=== PATIENT | male | born 1965 | race Caucasian/White ===

== ENCOUNTER 2020-03-14 19:47 | Emergency (ER) | payer SELFPAY ==
[~2020-03-14] VITALS: Ht 177 cm; Wt 77.0 kg
[2020-03-14 19:59] LABS: BASOPHILS % (AUTO) 0 % (0-10); EOSINOPHILS # (AUTO) 0.1 10^3/uL (0.0-0.3); EOSINOPHILS % (AUTO) 1 % (0-10); HEMATOCRIT 44 % (40-54); HEMOGLOBIN 15.7 G/DL (13.3-17.7); LYMPHOCYTES # (AUTO) 0.9 X 10^3 (1.0-4.0); LYMPHOCYTES % (AUTO) 9 % (12-44); MEAN CORPUSCULAR HEMOGLOBIN 37 PG (25-34); MEAN CORPUSCULAR HGB CONC 36 G/DL (32-36); MEAN CORPUSCULAR VOLUME 105 FL (80-99); MEAN PLATELET VOLUME 9.4 FL (7.4-10.4); MONOCYTES # (AUTO) 1.2 X 10^3 (0.0-1.0); MONOCYTES % (AUTO) 12 % (0-12); NEUTROPHILS # (AUTO) 7.7 X 10^3 (1.8-7.8); NEUTROPHILS % (AUTO) 77 % (42-75); PLATELET COUNT 235 10^3/uL (130-400); RED CELL DISTRIBUTION WIDTH 13.2 % (10.0-14.5); WHITE BLOOD COUNT 9.9 10^3/uL (4.3-11.0)
[2020-03-14] MEDS ORDERED: LACTATED RINGERS 1,000 ML IV SCH (20:00)
--- NOTE | 2020-03-14 20:12 | ED General ---
General Chief Complaint: Exposure Stated Complaint: SYNCOPE Source of Information: Patient Exam Limitations: No Limitations History of Present Illness Date Seen by Provider: Mar 14, 2020 Time Seen by Provider: 20:10 Initial Comments To ER with syncopal episode. He is brought in by EMS after coworkers found him to be unresponsive for a few minutes. He then was confused afterwards. Upon arrival to ER he is feeling back to normal. He's been working out in the heat all day today, temperatures upwards of 100 with the heat index. Timing/Duration: 1-2 Days Severity: Moderate Associated Systoms: Denies Symptoms Allergies and Home Medications Allergies Coded Allergies: No Known Drug Allergies (Unverified , 03/14/20) Patient Home Medication List Home Medication List Reviewed: Yes Review of Systems Review of Systems Constitutional: see HPI EENTM: see HPI Respiratory: no symptoms reported Cardiovascular: no symptoms reported Genitourinary: no symptoms reported Musculoskeletal: no symptoms reported Skin: no symptoms reported Psychiatric/Neurological: No Symptoms Reported Hematologic/Lymphatic: No Symptoms Reported Immunological/Allergic: no symptoms reported Physical Exam Vital Signs Vital Signs - First Documented 03/14/20 19:47 Temp 36.6 Pulse 111 Resp 16 B/P (MAP) 127/87 (100) O2 Delivery Room Air Capillary Refill : Height, Weight, BMI Height: '" Weight: lbs. oz. kg; BMI Method: General Appearance: No Apparent Distress, WD/WN, Other (alert and oriented sitting up talking to me pleasant conversing appropriately) Eyes: Bilateral Eye Normal Inspection, Bilateral Eye PERRL, Bilateral Eye EOMI HEENT: PERRL/EOMI, TMs Normal, Other (there is no scalp laceration or hematoma to suggest that he hit his head when he fell) Neck: Full Range of Motion, Normal Inspection Respiratory: Normal Breath Sounds, No Accessory Muscle Use, No Respiratory Distress Cardiovascular: Normal Peripheral Pulses, Tachycardia Gastrointestinal: Normal Bowel Sounds, Non Tender, Soft Extremity: Normal Capillary Refill Neurologic/Psychiatric: Alert, Oriented x3 Skin: Normal Color, Warm/Dry Progress/Results/Core Measures Suspected Sepsis SIRS Temperature: Pulse: Respiratory Rate: Laboratory Tests 03/14/20 19:53: White Blood Count 9.9 Blood Pressure / Mean: Laboratory Tests 03/14/20 19:53: Creatinine 0.92, Platelet Count 235, Total Bilirubin 1.5H Results/Orders Lab Results Laboratory Tests Test 03/14/20 19:53 Range/Units White Blood Count 9.9 4.3-11.0 10^3/uL Red Blood Count 4.19 L 4.35-5.85 10^6/uL Hemoglobin 15.7 13.3-17.7 G/DL Hematocrit 44 40-54 % Mean Corpuscular Volume 105 H 80-99 FL Mean Corpuscular Hemoglobin 37 H 25-34 PG Mean Corpuscular Hemoglobin Concent 36 32-36 G/DL Red Cell Distribution Width 13.2 10.0-14.5 % Platelet Count 235 130-400 10^3/uL Mean Platelet Volume 9.4 7.4-10.4 FL Neutrophils (%) (Auto) 77 H 42-75 % Lymphocytes (%) (Auto) 9 L 12-44 % Monocytes (%) (Auto) 12 0-12 % Eosinophils (%) (Auto) 1 0-10 % Basophils (%) (Auto) 0 0-10 % Neutrophils # (Auto) 7.7 1.8-7.8 X 10^3 Lymphocytes # (Auto) 0.9 L 1.0-4.0 X 10^3 Monocytes # (Auto) 1.2 H 0.0-1.0 X 10^3 Eosinophils # (Auto) 0.1 0.0-0.3 10^3/uL Basophils # (Auto) 0.0 0.0-0.1 10^3/uL Sodium Level 135 135-145 MMOL/L Potassium Level 3.3 L 3.6-5.0 MMOL/L Chloride Level 99 98-107 MMOL/L Carbon Dioxide Level 17 L 21-32 MMOL/L Anion Gap 19 H 5-14 MMOL/L Blood Urea Nitrogen 8 7-18 MG/DL Creatinine 0.92 0.60-1.30 MG/DL Estimat Glomerular Filtration Rate > 60 BUN/Creatinine Ratio 9 Glucose Level 116 H 70-105 MG/DL Calcium Level 9.2 8.5-10.1 MG/DL Corrected Calcium 9.1 8.5-10.1 MG/DL Total Bilirubin 1.5 H 0.1-1.0 MG/DL Aspartate Amino Transf (AST/SGOT) 70 H 5-34 U/L Alanine Aminotransferase (ALT/SGPT) 57 H 0-55 U/L Alkaline Phosphatase 83 40-136 U/L Total Creatine Kinase 593 H 30-200 U/L Total Protein 7.4 6.4-8.2 GM/DL Albumin 4.1 3.2-4.5 GM/DL My Orders Orders - TIBURCIO CALLES APRN Lactated Ringers (Lr 1000 Ml Iv Solution (03/14/20 20:00) Cbc With Automated Diff (03/14/20 19:53) Comprehensive Metabolic Panel (03/14/20 19:53) Ua Culture If Indicated (03/14/20 19:53) Creatine Kinase (03/14/20 19:53) Chest 1 View, Ap/Pa Only (03/14/20 19:53) Vital Signs/I&O 03/14/20 19:47 Temp 36.6 Pulse 111 Resp 16 B/P (MAP) 127/87 (100) O2 Delivery Room Air Capillary Refill : Departure Impression Primary Impression: Heat exhaustion Additional Impression: Syncope and collapse Disposition: 01 HOME, SELF-CARE Condition: Stable Departure-Patient Inst. Decision time for Depature: 20:53 Patient Instructions: Heat Exhaustion and Heat Stroke (DC) TIBURCIO CALLES APRN Mar 14, 2020 20:12
[2020-03-14 20:14] LABS: ALBUMIN 4.1 GM/DL (3.2-4.5); CHLORIDE 99 MMOL/L (98-107); POTASSIUM 3.3 MMOL/L (3.6-5.0); SODIUM 135 MMOL/L (135-145)
[2020-03-14 20:15] LABS: CALCIUM 9.2 MG/DL (8.5-10.1)
[2020-03-14 20:16] LABS: GLUCOSE 116 MG/DL (70-105); TOTAL PROTEIN 7.4 GM/DL (6.4-8.2)
--- NOTE | 2020-03-14 20:16 | NUR ---
1L NS INFUSED THAT WAS STARTED VIA EMS EN ROUTE.
[2020-03-14 20:17] LABS: CARBON DIOXIDE 17 MMOL/L (21-32)
[2020-03-14 20:18] LABS: BILIRUBIN,TOTAL 1.5 MG/DL (0.1-1.0)
[2020-03-14 20:20] LABS: ALKALINE PHOSPHATASE 83 U/L (40-136); CREATININE SERUM 0.92 MG/DL (0.60-1.30); GFR ESTIMATED > 60
[2020-03-14 20:21] LABS: BUN/CREATININE RATIO 9
[2020-03-14 20:23] LABS: ALANINE AMINOTRANSFERASE 57 U/L (0-55); CREATINE KINASE 593 U/L (30-200)
--- NOTE | 2020-03-14 20:27 | Diagnostic Imaging Report ---
INDICATION: Heat exposure. Syncope. Single view of the chest shows normal heart size and vascularity. The lungs are clear. There is no effusion or pneumothorax. There is no bony abnormality. IMPRESSION: Normal chest. Dictated by: Dictated on workstation # [id number]
[2020-03-14 20:56] LABS: BILIRUBIN,URINE NEGATIVE (NEGATIVE); CLARITY,URINE CLEAR; COLOR,URINE YELLOW; GLUCOSE, URINE (UA) NEGATIVE (NEGATIVE); KETONES,URINE 1+ (NEGATIVE); LEUKOCYTE ESTERASE ,URINE NEGATIVE (NEGATIVE); NITRITE,URINE NEGATIVE (NEGATIVE); PH,URINE 6.5 (5-9); PROTEIN,URINE 1+ (NEGATIVE)
[2020-03-14 21:00] VITALS: BP 127/80
[2020-03-14 21:02] LABS: BACTERIA,URINE TRACE /HPF; SQUAMOUS EPITHELIAL CELL,UR RARE /HPF; WBC,URINE 0-2 /HPF
[2020-03-14 21:03] LABS: HYALINE CASTS, URINE 0-2 /LPF
== END 2020-03-14 21:01 | disposition home or self-care (01) ==
LOC: ER 19:49
DX: T67.5XXA Heat exhaustion, unspecified, initial encounter (principal); R55 Syncope and collapse
CPT/HCPCS: 36415; 71045; 80053; 81000; 82550; 85025

== ENCOUNTER → 2020-10-06 | Outpatient (CLI) | payer OTHER ==
--- NOTE | 2020-10-06 11:03 | Diagnostic Imaging Report ---
INDICATION: Sciatica. FINDINGS: There are mild degenerative changes right knee. No fracture or dislocation. Soft tissues are unremarkable. IMPRESSION: Minimal degenerative changes otherwise unremarkable. Dictated by: Dictated on workstation # [id number]
--- NOTE | 2020-10-06 12:43 | Diagnostic Imaging Report ---
INDICATION: Back pain with bilateral feet numbness. TECHNIQUE: AP and lateral views of the lumbar spine are obtained. FINDINGS: The lumbar vertebrae are normal in height and alignment. There is no fracture or subluxation. There is disc space narrowing at L5-S1 and L4-L5 with osteophyte formation. There is some mild degenerative endplate change at the L2-L3 level. There is osteophyte formation throughout all levels. There is facet degenerative change, most prominent at L4-L5 and L5-S1. IMPRESSION: Multilevel degenerative findings in the lumbar spine, as described above level by level. There is no acute-appearing abnormality. Dictated by: Dictated on workstation # [id number]
== END ==
LOC: RAD 08:57
DX: Z02.71 Encounter for disability determination (principal); M47.816 Spondylosis without myelopathy or radiculopathy, lumbar region; M47.817 Spondylosis without myelopathy or radiculopathy, lumbosacral region; M48.061 Spinal stenosis, lumbar region without neurogenic claudication; M48.07 Spinal stenosis, lumbosacral region; M17.11 Unilateral primary osteoarthritis, right knee
CPT/HCPCS: 72100; 73560